=== PATIENT | female | born 1945 | race Caucasian/White ===

== ENCOUNTER → 2017-07-01 | Outpatient (CLI) | payer BC ==
[~2017-07-01] MED LIST: ATEN50TA8 PO; ATOR-24 PO; ESCI1TAB10 PO; HYZ/10015 PO; MAGNESIUM 250 MG; MULT-506 PO; NXM/40 PO; OMEGCAP2; POTA-335 PO; vit D
== END | disposition home or self-care (01) ==
LOC: C.PATHSPEC 13:39
PROVIDERS: ATTEND Dermatology
DX: C44.629 Squamous cell carcinoma of skin of left upper limb, including shoulder (principal); L57.8 Other skin changes due to chronic exposure to nonionizing radiation

== ENCOUNTER → 2017-08-10 | Outpatient (CLI) | payer BC | END | disposition home or self-care (01) | LOC: C.PATHSPEC 16:16 | PROVIDERS: ATTEND Dermatology | DX: L90.5 Scar conditions and fibrosis of skin (principal) ==

== ENCOUNTER → 2017-08-15 | Outpatient (CLI) | payer BC | END | disposition home or self-care (01) | LOC: C.LABSPEC 10:32 | PROVIDERS: ATTEND Urology | DX: N39.41 Urge incontinence (principal) ==

== ENCOUNTER → 2017-11-10 | Outpatient (CLI) | payer BC ==
[~2017-11-10] MED LIST changes: +ACET-1256 PO; +ASPI81TA28 PO; +CHOL2000 PO; +GABA-113 PO; +MIRA1TAB3 PO; +MULT-1092 PO; -OMEGCAP2; +OMEGCAP2 PO; +POTA-639 PO; +TURM500T PO
[2017-11-10 17:00] LABS: BASO % 0.3 %; BASO ABS # 0.02 K/uL (0-0.2); EOS % 2.4 %; EOS ABS # 0.16 K/uL (0-0.5); HEMOGLOBIN 14.9 g/dL (12.0-16.0); IG# 0.01 K/uL (0.00-0.02); LYMPH % 29.3 %; LYMPH ABS # 1.95 K/uL (1.2-3.4); MEAN CELL VOLUME 93.9 fL (80-100); MEAN CORPUSCULAR HEMOGLOBIN 32.5 pg (25-34); MEAN CORPUSCULAR HGB CONC 34.7 g/dl (32-36); MONO % 8.3 %; MONO ABS # 0.55 K/uL (0.11-0.59); NEUT % 59.5 %; NEUT ABS # 3.97 K/uL (1.4-6.5); PLATELET COUNT 171 K/uL (130-400); RED CELL DISTRIBUTION WIDTH SD 44.3 fL (36.4-46.3); WHITE BLOOD COUNT 6.66 K/uL (4.8-10.8)
[2017-11-10 17:32] LABS: BLOOD UREA NITROGEN 25 mg/dl (7-18); CALCIUM 9.6 mg/dl (8.5-10.1); CARBON DIOXIDE 31 mmol/L (21-32); CREATININE 1.04 mg/dl (0.60-1.20); GLUCOSE 85 mg/dl (70-99); POTASSIUM 3.8 mmol/L (3.5-5.1); SODIUM 139 mmol/L (136-145)
== END | disposition home or self-care (01) ==
LOC: C.CPL 15:37
PROVIDERS: ATTEND Plastic Surgery
DX: L98.9 Disorder of the skin and subcutaneous tissue, unspecified (principal)

== ENCOUNTER → 2017-11-22 | Day surgery (SDC) | payer BC ==
[2017-11-17 11:48] VITALS: Ht 157.5 cm; Wt 68.2 kg
[~2017-11-22] VITALS: Ht 157.5 cm; Wt 68.2 kg
[~2017-11-22] MED LIST changes: +ACETAMINOPHEN 325 MG TAB PO PRN; +ATROPINE SULFATE 0.1 MG/ML 5ML SYR IV PRN; +CEFAZOLIN 2000MG IV PUSH 10 ML IV SCH; +CEFAZOLIN SOD 1 GM VIAL ONE; +DEXAMETHASONE SOD INJ 4 MG/ML VIAL IV PRN; +EpHEDrine SULFATE INJ 50 MG/ML AMP IV PRN; +FENTANYL CITRATE INJ 50 MCG/1 ML 2 ML VIAL IV PRN; +FENTANYL CITRATE INJ 50 MCG/1 ML 2 ML VIAL ONE; +LACTATED RINGER'S 1000ML 1,000 ML IV SCH; +LIDOCAINE HCL 2% 2 ML VIAL (20MG/ML) ONE; +LIDOCAINE/EPINEPHRINE 1% INJ 50 ML VIAL ONE; -MAGNESIUM 250 MG; +METOCLOPRAMIDE HCL INJ 5 MG/ML 2 ML VIAL IV PRN; +MIDAZOLAM HCL 1 MG/ML 2ML VIAL ONE; -MULT-506 PO; -NXM/40 PO; +ONDANSETRON INJ 2 MG/ML 2 ML VIAL IV PRN; +OXYCODONE/ACETAMINOPHEN 5-325 TAB PO PRN; -POTA-335 PO; +PROPOFOL IV EMULSION 10 MG/ML 20 ML VIAL IV ONE; +SODIUM CHLORIDE 0.9% 1000ML 1,000 ML IV SCH; +SODIUM CHLORIDE 0.9% INJ 10 ML VIAL ONE; -vit D
--- NOTE | 2017-11-22 09:49 | History & Physical Bridge - [place] ---
H&P Re-Evaluation Bridge Note: I have examined the patient, reviewed the History & Physical and in the interval since the performance of the History & Physical I have noted the following changes of clinical significance: Recent laryngitis, now resolved.
--- NOTE | 2017-11-22 11:24 | [facility] Post Operative Brief Note ---
Immediate Operative Summary Operative Date Nov 22, 2017. Pre-Operative Diagnosis Nonhealing lesion left weber, history of basal cell carcinoma Post-Operative Diagnosis Same as preop Procedure(s) Performed Left Lower Anterior Leg, Basal Cell Carcinoma Excision With Frozen Section, Full Thickness Skin Graft Surgeon Dr. Whitehead Revenue Settlements Administrator Surgeon(s) Ave Caldwell PA-C Estimated Blood Loss 1 Findings residual BCC, margins negative Specimens A: Frozen Basal cell carcinoma left lower anterior leg, suture kenney 12 o'clock ( out at 1036 ) Anesthesia local with sedation Complication(s) None Disposition Recovery Room / PACU
--- NOTE | 2017-11-22 11:29 | Discharge Instructions ---
Discharge Instructions Date of Service Nov 22, 2017. Admission Reason for Admission: Hx Basal Cell Ca, Skin Lesion Left Lower Extremity Discharge Discharge Diagnosis / Problem: basal cell carcinoma Discharge Goals Goal(s): Decrease discomfort, Improve function Activity Recommendations Activity Limitations: per Instructions/Follow-up section ACTIVITY RECOMMENDATIONS: __Normal activities _x_No bending, lifting or straining. Use caution with walking- limit amount of pressure put on foot __No driving __Driving allowed when you are off pain medications __Walking permitted __You should have help at home for ___ days DRESSINGS: __No dressings required _x_Keep dressings dry/in place until first office visit __Remove dressings ___ and leave dressings off __Apply ice ___ days __Remove dressings and reapply garment __Apply antibiotic ointment (Bacitracin, Neosporin, etc) to wounds 3-4 times/ day for 10 days BATHING: _x_Keep dressings dry _x_Sponge bathing permitted away from incision areas. No showers __Showering permitted _x_No swimming, hot tubs or soaking in a tub MEDICATIONS: Resume previous medications unless instructed otherwise by your surgeon. _x_Do not use aspirin, Motrin, Advil or Ibuprofen as these may promote bleeding. Please use Tylenol. _x_Prescription(s) provided: antibiotic and pain medication were provided at your last office visit. start antibiotic today OTHER INSTRUCTIONS: __Record drain output 2-3 times per day SPECIAL CARE INSTRUCTIONS: * It is normal to have a mild fever after surgery. If your temperature is higher than 101.5 degrees F, please call the office at [phone]. * Constipation is a typical side effect of pain medication. An over-the- counter stool softener will help relieve this. * Leaking around surgical drains may occur and should not cause concern. Sometimes these drains become clogged. If this happens, remove the bulb and milk the clot out of the tube, then replace the bulb. * Drainage from wounds after liposuction is normal and should be expected. Garments will become soiled. You should protect furniture and bedding. This drainage should mostly subside within 2-3 days. Leave garments in place unless instructed to remove them. * If you have unusual drainage from a wound or are concerned you have an infection or have any questions or concerns, please call the office at [phone]. FOLLOW UP VISIT: If not already scheduled, please call the office, , when you return home after surgery to schedule an appointment to be seen in __5-7_ days for graft removal. . Current Hospital Diet Patient's current hospital diet: Discharge Diet Recommended Diet: Regular Diet Procedures Procedures Performed: Left Lower Anterior Leg, Basal Cell Carcinoma Excision With Frozen Section, Full Thickness Skin Graft Pending Studies Studies pending at discharge: yes List of pending studies: pathology Medical Emergencies . Who to Call and When: Medical Emergencies: If at any time you feel your situation is an emergency, please call 911 immediately. . Non-Emergent Contact Non-Emergency issues call your: Primary Care Provider, Surgeon . "Provider Documentation" section prepared by Ave Caldwell. . VTE Core Measure Inpt VTE Proph given/why not?: SCD's [place] Drug Monitoring Program Search Results: no issues identified
[2017-11-22 11:30] VITALS: TEMP 37
--- NOTE | 2017-11-22 11:48 | Anesthesiology Progress Note ---
Anesthesia Post Op Note Date & Time Nov 22, 2017 at 11:48 Vital Signs Pain Intensity: 0 Vital Signs Past 12 Hours Date Time Temp Pulse Resp B/P (MAP) Pulse Ox O2 Delivery O2 Flow Rate FiO2 11/22/17 11:30 37.0 69 12 106/54 (71) 95 Room Air 11/22/17 09:27 36.6 77 16 111/79 (90) 95 Room Air Notes Mental Status: alert / awake / arousable, participated in evaluation Nausea / Vomiting: adequately controlled Pain: adequately controlled Airway Patency, RR, SpO2: stable & adequate BP & HR: stable & adequate Hydration State: stable & adequate Anesthetic Complications: no major complications apparent
[2017-11-22 11:58] VITALS: BP 104/57; PULSE 64; O2SAT 95
--- NOTE | 2017-11-22 14:30 | OPERATIVE REPORT ---
DATE OF OPERATION: 11/22/2017 PREOPERATIVE DIAGNOSIS: Basal cell carcinoma, left anterior lower leg. POSTOPERATIVE DIAGNOSIS: Same. PROCEDURE: Excision basal cell carcinoma left anterior lower leg with frozen section and full thickness skin graft. SURGEON: Dr. Stormy Whitehead. ANIMAL BIOLOGIST: Ave Caldwell PA-C. ANESTHESIA: Local with sedation. COMPLICATIONS: None. 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 Given the location and lack of skin laxity and soft tissue in this location as well as the size of the lesion, which measured 1.9 x 1.5 cm, we discussed performing this in the operating room and placing a full thickness skin graft. As we were planning reconstruction and operating room trip, I recommended performing frozen section to establish clear margins, prior to placing the graft. BRIEF DESCRIPTION OF THE PROCEDURE: The risks, benefits and alternatives of the procedure were explained to the patient who agreed and signed consent. She was identified and marked in the preoperative holding area and brought to the operating room where she was positioned supine and placed under sedation without issue. The 1.9 x 1.5 cm nodular lesion of the left anterior lower leg was marked with a margin of normal-appearing tissue for maximal excision diameter of 2.5 cm. We planned full thickness skin grafting from the left groin and this was prepped and marked as well. After the field had been prepped and draped, a time-out procedure was performed. I began by anesthetizing the donor site of the left groin with 1% lidocaine with epinephrine. The excision site was also injected with 1% lidocaine with epinephrine. A 15 blade scalpel was used to make the circular incision involving skin and the minimal amount of underlying subcutaneous fat down to fascia. It was excised and a suture was placed at 12 o'clock. The lesion was sent for frozen section. Hemostasis was achieved with electrocautery and the wound was temporarily dressed using a saline-soaked sponge. An elliptical incision was made within the left groin using a fresh scalpel blade to harvest a full thickness skin graft. This was passed off and defatted by my physician assistant account manager, while I achieved hemostasis at the donor site, performed undermining to facilitate closure and performed closure using 3-0 Vicryl interrupted dermal sutures and 3-0 Monocryl running subcuticular suture. The graft was defatted using curved iris scissor. I began inset of the graft while waiting for frozen section results. Frozen section results were called and there was residual basal cell carcinoma with all margins free of tumor. The graft was trimmed to fit the wound bed and inset using 4-0 silk tie over bolster sutures and 4-0 chromic interrupted sutures as well as quilting sutures within the wound bed. The donor site was dressed using Dermabond and the recipient site was dressed using Xeroform and a cotton ball to tie over bolster dressing. Dry dressings and an Eder wrap were then placed. Maximal excision diameter was 2.5 x 2.3 cm. The procedure was tolerated well. The patient was awakened and transferred to recovery in satisfactory condition. I attest to the content of the Intraoperative Record and any orders documented therein. Any exception s are noted below.
== END | disposition home or self-care (01) ==
LOC: X.SURG 09:05
PROVIDERS: ATTEND Plastic Surgery
DX: C44.711 Basal cell carcinoma of skin of unspecified lower limb, including hip (principal); I12.9 Hypertensive chronic kidney disease with stage 1 through stage 4 chronic kidney disease, or unspecified chronic kidney disease; E78.5 Hyperlipidemia, unspecified; G47.33 Obstructive sleep apnea (adult) (pediatric); K21.9 Gastro-esophageal reflux disease without esophagitis; M19.90 Unspecified osteoarthritis, unspecified site; M06.9 Rheumatoid arthritis, unspecified; Z86.73 Personal history of transient ischemic attack (TIA), and cerebral infarction without residual deficits; N18.9 Chronic kidney disease, unspecified; Z79.82 Long term (current) use of aspirin; Z79.899 Other long term (current) drug therapy

== ENCOUNTER → 2017-12-19 | Outpatient (CLI) | payer BC ==
[~2017-12-19] MED LIST changes: -ACETAMINOPHEN 325 MG TAB PO PRN; -ASPI81TA28 PO; -ATROPINE SULFATE 0.1 MG/ML 5ML SYR IV PRN; -CEFAZOLIN 2000MG IV PUSH 10 ML IV SCH; -CEFAZOLIN SOD 1 GM VIAL ONE; -DEXAMETHASONE SOD INJ 4 MG/ML VIAL IV PRN; -EpHEDrine SULFATE INJ 50 MG/ML AMP IV PRN; -FENTANYL CITRATE INJ 50 MCG/1 ML 2 ML VIAL IV PRN; -FENTANYL CITRATE INJ 50 MCG/1 ML 2 ML VIAL ONE; -LACTATED RINGER'S 1000ML 1,000 ML IV SCH; -LIDOCAINE HCL 2% 2 ML VIAL (20MG/ML) ONE; -LIDOCAINE/EPINEPHRINE 1% INJ 50 ML VIAL ONE; -METOCLOPRAMIDE HCL INJ 5 MG/ML 2 ML VIAL IV PRN; -MIDAZOLAM HCL 1 MG/ML 2ML VIAL ONE; -OMEGCAP2 PO; -ONDANSETRON INJ 2 MG/ML 2 ML VIAL IV PRN; -OXYCODONE/ACETAMINOPHEN 5-325 TAB PO PRN; -POTA-639 PO; +POTA20TA16 PO; -PROPOFOL IV EMULSION 10 MG/ML 20 ML VIAL IV ONE; -SODIUM CHLORIDE 0.9% 1000ML 1,000 ML IV SCH; -SODIUM CHLORIDE 0.9% INJ 10 ML VIAL ONE; -TURM500T PO
--- NOTE | 2017-12-19 11:34 | DIAGNOSTIC IMAGING REPORT ---
R WRIST MIN 3 VIEWS ROUTINE CLINICAL HISTORY: 72 years-old Female presenting with Z79.899 Methotrexate, shelter, current [id number]. TECHNIQUE: Frontal, bilateral oblique, and lateral views of the right wrist were obtained. COMPARISON: None. FINDINGS: Multiple abnormal ossicles noted along the volar aspect of the wrist at the level of the carpus and distal ulna. A chronic ulnar styloid fracture may be present. Degenerative changes of the distal radial ulnar joint. Joint space loss at the radial scaphoid and radiolunate articulation with subchondral sclerosis in the distal radius and cystic change.. No gross evidence of erosions. Widening of the scapholunate interval suggesting intraosseous ligament disruption. No lunate or perilunate dislocation. No malalignment. No acute fracture. No regional osteopenia. IMPRESSION: Advanced degenerative changes at the radiocarpal articulations with suspected disruption of the scapholunate interosseous ligaments. These findings could be posttraumatic with resultant degenerative changes or potentially in the setting of rheumatoid arthritis with secondary osteoarthritis. Electronically signed by: Osiel Bustos M.D. 12/19/2017 11:32 AM Dictated Date/Time: 12/19/2017 11:25 AM
[2017-12-19 12:32] LABS: ALBUMIN 3.7 gm/dl (3.4-5.0); ALT/SGPT 30 U/L (12-78); CREATININE 1.17 mg/dl (0.60-1.20); URIC ACID 7.4 mg/dl (2.6-7.2)
[2017-12-19 12:35] LABS: ALKALINE PHOSPHATASE 74 U/L (45-117); AST/SGOT 21 U/L (15-37); TOTAL PROTEIN 7.3 gm/dl (6.4-8.2); TRANSFERRIN 252 mg/dl (200-360)
== END | disposition home or self-care (01) ==
LOC: C.RAD1850 11:06
PROVIDERS: ATTEND Internal Medicine Rheumatology
DX: Z51.81 Encounter for therapeutic drug level monitoring (principal); Z79.899 Other long term (current) drug therapy; M19.031 Primary osteoarthritis, right wrist

== ENCOUNTER → 2018-01-16 | Outpatient (CLI) | payer BC | END | disposition home or self-care (01) | LOC: C.LABSPEC 10:37 | PROVIDERS: ATTEND Urology | DX: R39.15 Urgency of urination (principal); N39.0 Urinary tract infection, site not specified; R32 Unspecified urinary incontinence ==